=== PATIENT | female | born 1970 | race Asian ===

== ENCOUNTER 2021-05-23 22:11 | Inpatient (IN) | payer BC ==
[~2021-05-23] VITALS: Ht 167.6 cm; Wt 66.2 kg
[2021-05-23 23:07] LABS: HEMATOCRIT 36.2 % (31.2-41.9); MEAN CORPUSCULAR HEMOGLOBIN 30.4 uug (24.7-32.8); MEAN CORPUSCULAR VOLUME 89.5 fL (75.5-95.3); PLATELET COUNT (AUTO) 305 K/uL (179-408)
[2021-05-23 23:08] LABS: CARBON DIOXIDE 33 mmol/L (21-32); CHLORIDE 100 mmol/L (98-107); CREATININE 0.7 mg/dL (0.6-1.3); GLUCOSE 135 mg/dL (74-106); POTASSIUM 3.6 mmol/L (3.5-5.1); UREA NITROGEN, BLOOD 13 mg/dL (7-18)
[2021-05-23 23:20] LABS: ALANINE AMINOTRANSFERASE 27 U/L (14-59); ALKALINE PHOSPHATASE 130 U/L (50-136); ASPARTATE AMINOTRANSFERASE 12 U/L (15-37); BILIRUBIN,DIRECT < 0.1 mg/dL (0.0-0.2); BILIRUBIN,TOTAL 0.2 mg/dL (0.2-1.0); TOTAL PROTEIN, SERUM 7.5 g/dL (6.4-8.2)
[2021-05-24] VITALS (9 sets, daily range): BP systolic 98–124; BP diastolic 53–83
[2021-05-24] MEDS ORDERED: VANCOMYCIN 1G/D5W 200 ML PIGGYBACK IV ONE
[2021-05-24] MEDS ORDERED: PIPERACILLIN SODIUM/TAZOBACTAM 3.375 G in IV DEXTROSE 5% 50 ML IV ONE
[2021-05-24] MEDS ORDERED: AZITHROMYCIN IV 500 MG in IV DEXTROSE 5% 250 ML IV ONE
[2021-05-24] MEDS ORDERED: PIPERACILLIN/TAZOBACTAM/D5W 50 ML IV ONE (00:05)
[2021-05-24] MEDS ORDERED: AZITHROMYCIN 500MG/ D5W 250ML IVPB **ER PYXIS ONLY IV ONE (00:05)
[2021-05-24] MEDS ORDERED: SWABABLE VALVE TRANSFER SET EA MC ONE (00:35)
[2021-05-24] MEDS ORDERED: IOHEXOL 350 100 ML INFUS..BTL ONE (00:35)
--- NOTE | 2021-05-24 00:35 | NUR ---
ASSISTED PT TO USE BED GONGORA.
--- NOTE | 2021-05-24 00:49 | NUR ---
PT TAKEN DOWN TO CT.
--- NOTE | 2021-05-24 01:18 | NUR ---
PT RETURNED FROM CT.
[2021-05-24] MEDS ORDERED: IV NORMAL SALINE 250 ML IV ONE (01:26)
--- NOTE | 2021-05-24 02:29 | NUR ---
PT NOTED TO BE ASLEEP, RESTING COMFORTABLY IN BED. VITALS STABLE.
[2021-05-24 03:11] LABS: *BILIRUBIN,URIN NEGATIVE (NEGATIVE); *BLOOD, URINE 1+ (NEGATIVE); *CLARITY,URINE SLIGHTLY CLOUDY (CLEAR); *COLOR,URINE YELLOW (YELLOW); *KETONES,URINE NEGATIVE (NEGATIVE); *UROBILINOGEN,URINE 0.2 E.U./dl (NORMAL); LEUKOCYTE ESTERASE ,URINE 3+ (NEGATIVE); NITRITE, URINE NEGATIVE (NEGATIVE); PH,URINE 7.5 (5.0-8.0); UGLUCOSE NEGATIVE (NEGATIVE)
[2021-05-24 03:29] LABS: BACTERIA,URINE MANY /HPF (NONE SEEN); SQUAMOUS EPITHELIAL CELL,UR FEW /HPF (NONE SEEN); TRIPLE PHOSPHATE CRYSTAL,UR MODERATE /HPF (NONE SEEN); WBC,URINE 50-80 /HPF (0-3)
[2021-05-24 03:30] LABS: URINE AMORPHOUS PHOSPHATES MANY /HPF
[2021-05-24] MEDS ORDERED: LEVE500T9 PO (04:03)
[2021-05-24] MEDS ORDERED: IV NS 1000 ML 1,000 ML IV ONE ×2 (04:15)
--- NOTE | 2021-05-24 04:18 | NUR ---
PATIENT BP IS 74/41, HR 60, RR 16 WITH 02 SATS 100% ON RA. DR WADSWORTH ORDERED 1LITER OF NS.
[2021-05-24] MEDS ORDERED: MIDODRINE HCL 5 MG TABLET PO PRN (04:30)
[2021-05-24] MEDS ORDERED: ACETAMINOPHEN 325 MG TABLET PO PRN (04:30)
[2021-05-24] MEDS ORDERED: ONDANSETRON 4 MG/2 ML VIAL IV PRN (04:30)
[2021-05-24] MEDS: IV NS 1000 ML 1,000 ML IV ONE (04:30)
--- NOTE | 2021-05-24 04:45 | NUR ---
GAVE REPORT TO SANA ROSA CCU OVERFLOW.
--- NOTE | 2021-05-24 05:00 | NUR ---
PT DENIES ANY PAIN/DISCOMFORT. NO SOB OR LABORED BREATHING.
--- NOTE | 2021-05-24 05:10 | NUR ---
PT NOTED TO BE SOILED, PROVIDED PT WITH PROPER PERINEAL CARE, NOTED TO BE CLEAN AND DRY.
--- NOTE | 2021-05-24 05:30 | NUR ---
received patient and report from maliha . er nurse , patient is awake , no verbal , unable to follow command at this time , crackles throu out , suctioned with thick yellow secretions , SR ON 60" S , incontinent , bs 88 , ns running 100 ml , , peg flush , clogged , with scant drainage , portex size 6 , saturation is 82 on room air , татьяна 96.5 , bp 109/71 . iv 20 ga right ac, belongings is pajamas and socks
[2021-05-24] MEDS: IV NS 1000 ML 1,000 ML IV SCH ×3 (05:59→23:54)
--- NOTE | 2021-05-24 06:58 | NUR ---
patient is placed on t - piece 60 % fio2
--- NOTE | 2021-05-24 07:30 | NUR ---
patient is in bed, currently on T-piece, fio2 60%, 10 liter o2, responsive on calling her name, shakes her head for yes and no and goes back to sleep, saturating at 99%. noted with excessive secretions, RT bedside, performing suctioning, trach care.
[2021-05-24] MEDS: CEFTRIAXONE 1 G in IV DEXTROSE 5% 50 ML IV SCH (08:13)
[2021-05-24] MEDS ORDERED: levETIRAcetam 500 MG TABLET PO SCH (09:00)
[2021-05-24] MEDS ORDERED: levETIRAcetam IV 500 MG in IV DEXTROSE 5% 100 ML IV SCH (09:00)
[2021-05-24] MEDS: Z GUARD REMEDY PASTE 57 GM TUBE TOP SCH ×2 (09:02→21:18)
--- NOTE | 2021-05-24 09:15 | NUR ---
patient saturation on fio2 60% remains 99-100%, RT bedside, decreased fio2 to 28%, on 6 liters of o2, tolerated well, saturating at 100%, no distress noted, patient is responsive upon calling her name and shakes her head to answer " yes" or "no" able to lining layer her upper and lower extremities upon assessment, and squeeze this auto service writer hands upon assessment.
[2021-05-24 09:39] LABS: MEAN CORPUSCULAR HEMOGLOBIN 30.3 uug (24.7-32.8); MEAN CORPUSCULAR VOLUME 89.9 fL (75.5-95.3); PLATELET COUNT (AUTO) 260 K/uL (179-408)
[2021-05-24 09:53] LABS: CREATININE 0.6 mg/dL (0.6-1.3); POTASSIUM 4.3 mmol/L (3.5-5.1)
--- NOTE | 2021-05-24 11:01 | NUR ---
speech therapist performed evaluation, and recommended patient to be kept NPO for now.
--- NOTE | 2021-05-24 11:43 | NUR ---
spoke to [facility] ORTHOPEDIC MECHANIC, regarding able to unclogged the G-tube, g-tube placement checked with stethoscope, in place, per steph ORTHOPEDIC MECHANIC, refer to radiation therapy technician for tube feeding recommendation, radiation therapy technician made aware.
--- NOTE | 2021-05-24 11:48 | NUR ---
g-tube site is clean and dry, no discharge or redness noted at - g- tube site
[2021-05-24] MEDS ORDERED: JEVITY 1.2 1000 ML LIQUID GT PRN ×2 (13:00→14:43)
--- NOTE | 2021-05-24 13:15 | NUR ---
Patient started on g-tube feeding as recommended by inspector production plastic parts, start at 10ml per hour, titrate to 55ml/hr as tolerated x22 hours.
--- NOTE | 2021-05-24 14:47 | NUR ---
patient in bed, awake, follows commands, able to move her extremities, g-tube intact, running at 20ml per hour, flushed well, patent, patient voided x3, saturating at 99% at fio2 28%, 6liter of o2, noted with excessive secretions, suctioned as needed.
--- NOTE | 2021-05-24 16:31 | NUR ---
patient mother came to visit and said does not want g-tube to be used even it is patent, even flushed it well, and Varghese valve changed before used the g-tube, name tom stated that he does not want g-tube to be used. young want nurses to feed mai patient orally, despite explaining that patient failed the ST eval. Becky NURSE PRIVATE DUTY made aware.
--- NOTE | 2021-05-24 16:58 | NUR ---
after explaining in detail about consequences and risks and benefits by another nurse, patient daughter name Gregg, who was present next to patient Joaquin, agreed to feed patient via g-tube.
--- NOTE | 2021-05-24 17:04 | NUR ---
patient is awake, shakes her head to yes or no to questions, noted with excessive secretions, thick yellow sputum, suctioned as needed, saturating at 99% at fio2 28%, at 6 liter, no acute distress noted at this time, family bedside.
--- NOTE | 2021-05-24 19:00 | NUR ---
Received patient awake, able to respond questions by nodding head; trach attached to T piece @ 6L, FiO 28%, O2 sat 100%. Passy donn valve at bedside. GT patent with TF of Jevity 1.2 @ 30mls/hr goal rate: 55mls/hr, with no gastric residual. LAC 22G with ongoing NS @100mls/hr. Per BHANU Queen, patient had multiple PVCs @ 1700 and tried to contact cardio. Stat EKG done which revealed NSR, HR=71bpm. No signs of pain nor acute distress noted. Oral care and suctioning done every 2 hours and PRN. Turn and reposition every 2 hours.Will continue to monitor closely.
--- NOTE | 2021-05-24 19:18 | NUR ---
report given to financial aid coordinator, saturating at 99% at fio2 28%, o2 6 liter, however patient desaturates with mucous plug or with excessive secretions, gets back to normal saturation in few seconds. however patient remains asymptomatic, pink color, awake and responsive. no distress noted.
[2021-05-24] MEDS ORDERED: MIDODRINE HCL 5 MG TABLET GT PRN (20:30)
[2021-05-25] VITALS: BP 102/66
--- NOTE | 2021-05-25 02:00 | NUR ---
Resting comfortably. No significant change of condition noted. Will continue to monitor closely.
[2021-05-25 04:00] VITALS: BP 105/65
--- NOTE | 2021-05-25 06:36 | NUR ---
Left patient asleep, arousable to name; no signs of pain nor distress noted; trach portex 6, hooked to T piece @6L FiO28%, O2 sat of 100%. G tube patent TF Jevity 1.2 @50mls/hr off at [id number]. LAC with ongoing NS @ 100mls/hr. VSS. Endorsed to AM shift for continuity of care.
[2021-05-25 06:51] LABS: HEMATOCRIT 35.7 % (31.2-41.9); MEAN CORPUSCULAR HEMOGLOBIN 30.3 uug (24.7-32.8); MEAN CORPUSCULAR VOLUME 88.5 fL (75.5-95.3); PLATELET COUNT (AUTO) 278 K/uL (179-408)
--- NOTE | 2021-05-25 07:15 | NUR ---
Received pt. in bed resting ON T-Piece 6 liters., 28% FIO2 with saturation within desired limits. Hemodynamically stable on NSR. no pressor,. Diaper. G-T in place with feeding to be resumed. IV line patent will continue to monitor.
[2021-05-25 07:31] LABS: BILIRUBIN,TOTAL 0.2 mg/dL (0.2-1.0); CREATININE 0.6 mg/dL (0.6-1.3); PHOSPHOROUS 4.3 mg/dL (2.5-4.9); POTASSIUM 3.6 mmol/L (3.5-5.1); TOTAL PROTEIN, SERUM 7.3 g/dL (6.4-8.2)
[2021-05-25 08:00] VITALS: BP 112/75
[2021-05-25] MEDS: levETIRAcetam 500 MG/5 ML LIQUID UDC GT SCH ×2 (09:04→20:55)
[2021-05-25] MEDS: Z GUARD REMEDY PASTE 57 GM TUBE TOP SCH ×2 (09:05→20:54)
[2021-05-25] MEDS: CEFTRIAXONE 1 G in IV DEXTROSE 5% 50 ML IV SCH (09:05)
[2021-05-25] MEDS: JEVITY 1.2 1000 ML LIQUID GT PRN (09:07)
[2021-05-25] MEDS: IV NS 1000 ML 1,000 ML IV SCH ×3 (09:08→20:54)
--- NOTE | 2021-05-25 10:00 | NUR ---
Patient seen by attending physician. report given see order hx.
[2021-05-25 12:00] VITALS: BP 105/59
[2021-05-25 16:00] VITALS: BP 95/65
--- NOTE | 2021-05-25 18:30 | NUR ---
Left pt. in bed resting ON T-Piece 6 liters., 28% FIO2 with saturation within desired limits. Pt/ Afebrile for the shift. Hemodynamically stable on NSR. no pressor,. Diaper. G-T to feeding running at goal therapy pt. tolerating it well with no residuals. IV line patent will continue to monitor.
--- NOTE | 2021-05-25 19:30 | NUR ---
ROUNDS MADE PATIENT IN BED NON VERBAL,EYES OPEN SPONTANEOUSLY PATIENT ABLE TO MOVED HEAD FROM SIDE TO SIDE . ON T-PIECE 6 LITERS =28% LARGE THICK SECRETIONS,PINK TINGED AND WHITISH TO RAUSCH NEEDS TO BE SUCTION FREQUENTLY.INCONTINENT OF URINE CHANGED DIAPER PRN .IVF VIA THE LEFT AC WITH NORMAL SALINE IN PROGRESS . NO S/S OF PAIN AND NO RESPIRATORY DISTRESS NOTED. SATURATION 100% RR 19 TO 20.
[2021-05-25 20:00] VITALS: BP 104/77
--- NOTE | 2021-05-25 20:55 | NUR ---
DUE MEDICATION KEPPRA GIVEN VIA THE PEG ,ON TUBE FEEDING JEVITY AT 55ML/HR TOLERATING TUBE FEEDINGS . ASPIRATION PRECAUTION OBSERVED ,HOB UP .
--- NOTE | 2021-05-25 21:45 | NUR ---
incontinent of urine changed soiled linens and gown . turned and reposition patient .
--- NOTE | 2021-05-25 21:47 | NUR ---
TURNED AND REPOSITION PATIENT OFFLOADED BACK WITH PILLOWS ,BILATERAL HEELS ELEVATED WITH PILLOWS . BILATERAL UPPER ARM ELEVATED WITH PILLOWS . V/S WNL . CONTINUE TO MONITOR V/S AND FOLLOW PROTOCOLS FOR ROSA .
[2021-05-26] VITALS (8 sets, daily range): BP systolic 101–120; BP diastolic 54–84
--- NOTE | 2021-05-26 02:33 | NUR ---
incontinent of urine changed soiled linens and gown .applied z guard to bilateral groin and sacral area .
[2021-05-26] MEDS: IV NS 1000 ML 1,000 ML IV SCH (04:13)
--- NOTE | 2021-05-26 05:00 | NUR ---
DEPUTY OF COUNTER INTELLIGENCE AT B/S FOR AM LABS .
--- NOTE | 2021-05-26 06:00 | NUR ---
tolerated tube feedings .flushed peg with water .
[2021-05-26 06:07] LABS: MEAN CORPUSCULAR HEMOGLOBIN 30.3 uug (24.7-32.8); MEAN CORPUSCULAR VOLUME 88.5 fL (75.5-95.3); PLATELET COUNT (AUTO) 285 K/uL (179-408)
[2021-05-26 06:22] LABS: CREATININE 0.6 mg/dL (0.6-1.3); PHOSPHOROUS 4.5 mg/dL (2.5-4.9); POTASSIUM 3.6 mmol/L (3.5-5.1)
[2021-05-26] MEDS: CEFTRIAXONE 1 G in IV DEXTROSE 5% 50 ML IV SCH (09:42)
[2021-05-26] MEDS: levETIRAcetam 500 MG/5 ML LIQUID UDC GT SCH ×2 (09:42→20:43)
[2021-05-26] MEDS: Z GUARD REMEDY PASTE 57 GM TUBE TOP SCH ×2 (09:43→20:42)
[2021-05-26] MEDS: JEVITY 1.2 1000 ML LIQUID GT PRN (09:43)
[2021-05-26] MEDS ORDERED: SCOPOLAMINE PATCH 1 MG/72 HRS PATCH TD SCH (14:30)
--- NOTE | 2021-05-26 15:00 | NUR ---
patient can be downgraded to tele per yang castro while rounding on patient
[2021-05-26] MEDS ORDERED: SCOPOLAMINE HYDROBROMIDE 1.5 MG PATCH TD ONE (15:15)
[2021-05-26] MEDS: SCOPOLAMINE PATCH 1 MG/72 HRS PATCH TD SCH (15:38)
--- NOTE | 2021-05-26 19:30 | NUR ---
Report received. Patient admitted 05/24/21 with chest and abdominal pains. DX: UTI, Sepsis. Awake, passive and with flat affect. Doesn't respond to questions or follow any commands. Moving R arm, able to hold on to the rails. Reoriented to place and time. engine monitor: SR rate 60'-70's. BP stable. With trache Portex#6, O2 via T-piece at 6L. O2 saturations above 94%. GT patent; with continuous feedings at 55 ml/H. No residuals. Assessment completed. Addendum: 05/27/21 at 0147 by ALEKSANDAR WALSH RN Amended: Links added. Addendum: 05/27/21 at 0149 by ALEKSANDAR WALSH RN Amended: Links added.
--- NOTE | 2021-05-26 20:00 | NUR ---
Turned and repositioned. Skin care provided. Suctioned via trache for large amounts of white, bloody tinged secretions. With good cough reflex. Addendum: 05/27/21 at 0149 by ALEKSANDAR WALSH RN Amended: Links added.
[2021-05-27] VITALS (13 sets, daily range): BP systolic 86–107; BP diastolic 54–71
--- NOTE | 2021-05-27 | NUR ---
Requires frequent suctioning. Incontinent of urine. Diaper changed. Addendum: 05/27/21 at 0158 by ALEKSANDAR WALSH RN Amended: Links added.
--- NOTE | 2021-05-27 04:00 | NUR ---
Saline lock leaking; new saline lock inserted to RFA. Diaper changed; patient incontinent of yellow urine. Am care rendered. Skin care provided. GT care done. Tolerating feedings well at 55 ml/H. Addendum: 05/27/21 at 0517 by ALEKSANDAR WALSH RN Amended: Links added.
[2021-05-27 05:47] LABS: HEMATOCRIT 34.5 % (31.2-41.9); MEAN CORPUSCULAR HEMOGLOBIN 29.9 uug (24.7-32.8); MEAN CORPUSCULAR VOLUME 89.2 fL (75.5-95.3); PLATELET COUNT (AUTO) 301 K/uL (179-408)
[2021-05-27 05:52] LABS: CREATININE 0.7 mg/dL (0.6-1.3); PHOSPHOROUS 5.2 mg/dL (2.5-4.9); POTASSIUM 3.6 mmol/L (3.5-5.1)
--- NOTE | 2021-05-27 06:37 | NUR ---
No neuro changes. Tolerating GT feedings well, off [id number]. Still requiring frequent suctioning. VS stable.
--- NOTE | 2021-05-27 07:20 | NUR ---
Received report from restaurant shift supervisor nurse. Patient is awake, passive, with flat affect. Responds to commands. Moving R arm and feet. Reoriented to place and time. SR rate 60'-70's on the monitor. Hemodynamically stable. trache Portex#6, O2 via T-piece at 6L. O2 saturation 99%. GT patent; with continuous feedings at 55 ml/H. No residuals. Assessment completed. Patient is afebrile, on air mattress with diaper on. SCD's in place.
[2021-05-27] MEDS: levETIRAcetam 500 MG/5 ML LIQUID UDC GT SCH ×2 (08:12→20:28)
[2021-05-27] MEDS: CEFTRIAXONE 1 G in IV DEXTROSE 5% 50 ML IV SCH (08:12)
[2021-05-27] MEDS: Z GUARD REMEDY PASTE 57 GM TUBE TOP SCH ×2 (08:12→20:28)
--- NOTE | 2021-05-27 10:40 | NUR ---
Notified Dr. Hayes that no DVT prophylaxis or gi prophylaxis in place. Received orders for lovenox 40mg sq daily.
--- NOTE | 2021-05-27 19:10 | NUR ---
Notified Dr. Hayes of CT Abdomen results and received orders for Milk of Magnesium.
--- NOTE | 2021-05-27 19:30 | NUR ---
Report received. Patient awake, nods head appropriately to answer questions but appears passive and with flat affect. Coughing productively; with large amounts of thick white secretions. Turned and repositioned. HOB elevated above 30 degrees. Tolerating GT feedings well; no residuals.
[2021-05-27] MEDS: ENOXAPARIN SODIUM 40 MG/0.4 ML DISP.SYRIN SQ SCH (20:29)
[2021-05-27] MEDS: PRIMIDONE 50 MG TABLET PO SCH (20:29)
[2021-05-27] MEDS: MAGNESIUM HYDROXIDE 30 ML LIQUID UDC PO PRN (20:29)
--- NOTE | 2021-05-27 22:13 | NUR ---
BP 86/58, patient sleeping. Midodrine PRN given via GT.
--- NOTE | 2021-05-27 22:30 | NUR ---
Diaper changed. Turned sides to sides. Skin care provided.
--- NOTE | 2021-05-27 23:35 | NUR ---
Transferred to Tele room #314 per bed. Belongings with patient upon transfer.
--- NOTE | 2021-05-27 23:45 | NUR ---
Transfer from CCU; agree with assessment; will continue to observe.
[2021-05-28 00:03] VITALS: BP 94/60
[2021-05-28 04:00] VITALS: BP 80/48
[2021-05-28 05:19] VITALS: BP 101/48
--- NOTE | 2021-05-28 07:15 | NUR ---
Received patient in bed, asleep. Portex 6 on 6L O2 via Tpiece. RFA #20 patent and intact. With PEG tube, no feeding running at this time. Will continue to monitor.
[2021-05-28] MEDS: JEVITY 1.2 1000 ML LIQUID GT PRN (08:05)
[2021-05-28] MEDS: Z GUARD REMEDY PASTE 57 GM TUBE TOP SCH ×2 (08:06→20:09)
[2021-05-28] MEDS: levETIRAcetam 500 MG/5 ML LIQUID UDC GT SCH ×2 (08:06→20:09)
[2021-05-28] MEDS: PRIMIDONE 50 MG TABLET PO SCH ×2 (08:06→20:09)
[2021-05-28] MEDS: CEFTRIAXONE 1 G in IV DEXTROSE 5% 50 ML IV SCH (09:09)
[2021-05-28 11:59] VITALS: BP 104/71
[2021-05-28 16:00] VITALS: BP 101/54
--- NOTE | 2021-05-28 18:40 | NUR ---
Patient resting in bed. With Portex 6, 6L O2 via Tpiece, saturating 98-100%. No signs of acute distress. Patient tolerated medications and tube feeding well.
--- NOTE | 2021-05-28 18:41 | NUR ---
Patient turned and repositioned q2. Bed in low position for safety. Sinus Mt to Sinus Rhythm on low voltage technician. IV access patent and intact. Will endorse to incoming shift for continuity of care.
[2021-05-28 20:00] VITALS: BP 99/64
[2021-05-28] MEDS: ENOXAPARIN SODIUM 40 MG/0.4 ML DISP.SYRIN SQ SCH (20:08)
[2021-05-29] VITALS: BP 98/60
[2021-05-29 04:00] VITALS: BP 91/61
[2021-05-29 05:49] LABS: CREATININE 0.6 mg/dL (0.6-1.3); MAGNESIUM 2.1 mg/dL (1.8-2.4); PHOSPHOROUS 4.8 mg/dL (2.5-4.9); POTASSIUM 3.8 mmol/L (3.5-5.1)
[2021-05-29 05:50] LABS: HEMATOCRIT 35.6 % (31.2-41.9); MEAN CORPUSCULAR HEMOGLOBIN 30.5 uug (24.7-32.8); MEAN CORPUSCULAR VOLUME 89.4 fL (75.5-95.3); PLATELET COUNT (AUTO) 297 K/uL (179-408)
--- NOTE | 2021-05-29 06:25 | NUR ---
Pt rested well in between care; suctioned oral and tracheal secretions; oral care done; trache care done; seizure prec observed; safety maintained; GT feed tolerated with aspiration precautions; continue to monitor; continue plan of care.
[2021-05-29] MEDS: JEVITY 1.2 1000 ML LIQUID GT PRN (08:12)
[2021-05-29] MEDS: CEFTRIAXONE 1 G in IV DEXTROSE 5% 50 ML IV SCH (09:25)
[2021-05-29] MEDS: levETIRAcetam 500 MG/5 ML LIQUID UDC GT SCH ×2 (09:25→20:21)
[2021-05-29] MEDS: Z GUARD REMEDY PASTE 57 GM TUBE TOP SCH ×2 (09:26→20:22)
[2021-05-29] MEDS: PRIMIDONE 50 MG TABLET PO SCH ×2 (09:26→20:21)
[2021-05-29 10:07] LABS: ABG BASE EXCESS 4.3 mmol/L; ABG HCO3 29.4 mmol/L; ABG PCO2 45.7 mmHg (35.0-45.0); ABG PH 7.426 (7.350-7.450); ABG PO2 85.6 mmHg (75.0-100.0); ABG SITE RIGHT RADIAL; ABG TOTAL HEMOGLOBIN 12.2 G/dL (12.0-16.0); COHb 0.8 % (0.5-1.5); MetHb 0.3 % (0.0-1.5); O2Hb 95.2 % (94.0-97.0); VENT MODE T-Piece - C/A 28%
[2021-05-29 11:33] VITALS: BP 96/60
[2021-05-29] MEDS ORDERED: LEVO750T46 PO (11:45)
[2021-05-29] MEDS ORDERED: LACT-209 GT (11:45)
[2021-05-29] MEDS: ACETAMINOPHEN 650 MG/20.3 ML LIQUID UDC GT PRN (15:22)
[2021-05-29] MEDS: SCOPOLAMINE PATCH 1 MG/72 HRS PATCH TD SCH (15:33)
[2021-05-29 16:00] VITALS: BP 95/56
--- NOTE | 2021-05-29 18:24 | NUR ---
per request the [facility] 9 in home supportive service ) papers to be signed by professional to increase the hours of care at home, per Rashad Cole its about the same hours of care patient was getting before at home.
[2021-05-29 20:00] VITALS: BP 99/64
[2021-05-29] MEDS: ENOXAPARIN SODIUM 40 MG/0.4 ML DISP.SYRIN SQ SCH (20:20)
[2021-05-30] VITALS: BP 107/62
[2021-05-30 04:00] VITALS: BP 101/63
[2021-05-30 06:33] LABS: HEMATOCRIT 33.6 % (31.2-41.9); MEAN CORPUSCULAR HEMOGLOBIN 30.3 uug (24.7-32.8); MEAN CORPUSCULAR VOLUME 88.9 fL (75.5-95.3); PLATELET COUNT (AUTO) 298 K/uL (179-408)
[2021-05-30 07:44] LABS: CREATININE 0.5 mg/dL (0.6-1.3); MAGNESIUM 2.1 mg/dL (1.8-2.4); PHOSPHOROUS 3.8 mg/dL (2.5-4.9); POTASSIUM 3.7 mmol/L (3.5-5.1)
--- NOTE | 2021-05-30 08:00 | NUR ---
awake but no verbal response, on trache to P mist at 6l, on continuous pulse oximetry-98 %, tele -SR 60's, suctioned of whitish thin secretions, head of bed elevated, G tube in place- checked residual-none obtained, feeding Jevity 1.2 at 55ml/hr- resumed, aspiration precaution observed, repositioned for comfort to left side with pillows for support, heels off loaded with pillows, safety measures maintained
[2021-05-30] MEDS: CEFTRIAXONE 1 G in IV DEXTROSE 5% 50 ML IV SCH (08:04)
[2021-05-30] MEDS: levETIRAcetam 500 MG/5 ML LIQUID UDC GT SCH ×2 (08:04→20:14)
[2021-05-30] MEDS: PRIMIDONE 50 MG TABLET PO SCH ×2 (08:04→20:14)
[2021-05-30] MEDS: Z GUARD REMEDY PASTE 57 GM TUBE TOP SCH ×2 (09:56→20:15)
--- NOTE | 2021-05-30 10:00 | NUR ---
parents at bedside, no distress noted
[2021-05-30 10:14] VITALS: BP 104/69
--- NOTE | 2021-05-30 11:00 | NUR ---
here, and updated on pt's condition, SW here and spoke to
[2021-05-30 15:55] VITALS: BP 99/57
[2021-05-30] MEDS: MAGNESIUM HYDROXIDE 30 ML LIQUID UDC PO PRN (16:44)
[2021-05-30] MEDS: ACETAMINOPHEN 650 MG/20.3 ML LIQUID UDC GT PRN (16:44)
[2021-05-30] MEDS: JEVITY 1.2 1000 ML LIQUID GT PRN (17:55)
--- NOTE | 2021-05-30 18:21 | NUR ---
Patient currently resting in bed, AxO2-3, Trached at 6L saturating at 97-98%. Patient showed no signs of distress during shift. Comfort measures provided. Call light within reach. Will endorse to oncoming shift.
--- NOTE | 2021-05-30 19:30 | NUR ---
Patient resting in bed in semi fowlers position. AAO to self, Able to answer closed ended questions by nodding. Portex size [address], t-piece at 6L/min. 02 sats monitored continuous, 02 sats 95-96 at this time. Noted to be attempting to remove o2 monitoring device multiple times and restless with hands and feet. GT in place, infusing Jevity 1.2 at 55ml/hr, patent and intact. Midline to right upper arm #18, intact and patent. Safety measures initiated, call light within reach.
[2021-05-30 20:00] VITALS: BP 99/60
[2021-05-30] MEDS: ENOXAPARIN SODIUM 40 MG/0.4 ML DISP.SYRIN SQ SCH (20:14)
[2021-05-31 04:00] VITALS: BP 113/74
--- NOTE | 2021-05-31 06:44 | NUR ---
Slept intermittently this shift. Suctioning provided as needed for secretions via Trach, portex 6, on 6L/min via T-piece. Continues on sat monitoring, sats 98-100%. GT feeding continued without complication, GT is patent and intact. No residual. Right arm midline intact and patent. Call light within reach.
--- NOTE | 2021-05-31 08:00 | NUR ---
woke up on assessment, with trache to Pmist 6L, suctioned of thin whitish phlegm, head of bed elevated, GT patent and in place- checked residual- none obtained, Jevity 1.2 resumed at 55ml/hr, aspiration precaution observed, repositioned and kept comfortable, safety measures maintained, no distress noted
[2021-05-31] MEDS: levETIRAcetam 500 MG/5 ML LIQUID UDC GT SCH ×2 (08:13→20:46)
[2021-05-31] MEDS: PRIMIDONE 50 MG TABLET PO SCH ×2 (08:14→20:47)
[2021-05-31] MEDS: Z GUARD REMEDY PASTE 57 GM TUBE TOP SCH ×2 (08:15→21:58)
--- NOTE | 2021-05-31 08:30 | NUR ---
seen by Dr Armenta
--- NOTE | 2021-05-31 09:00 | NUR ---
seen by Dr Ashley
--- NOTE | 2021-05-31 11:00 | NUR ---
family asking for pmv. A Douglas informed, speech therapist for PMV aleida
[2021-05-31 11:54] VITALS: BP 105/61
[2021-05-31 16:17] VITALS: BP 109/76
[2021-05-31] MEDS: JEVITY 1.2 1000 ML LIQUID GT PRN (18:13)
--- NOTE | 2021-05-31 18:30 | NUR ---
no distress noted, suctioned as needed for whitish secretions, repositioned q 2h for comfort, no residual from feeding, no n/v, CM still working on d/c planning, all needs attended and met,
[2021-05-31 20:38] VITALS: BP 105/65
[2021-05-31] MEDS: ENOXAPARIN SODIUM 40 MG/0.4 ML DISP.SYRIN SQ SCH (20:55)
[2021-06-01 04:31] VITALS: BP 98/66
--- NOTE | 2021-06-01 06:54 | NUR ---
Patient Slept well. on 6L/min via T-piece. suctioned PRN via Trach. Portex#6.Continues on 02 sat monitoring.HOB elevated.Aspiration precaution observed at all times.Gt in place patent and intact. No residual. Right arm midline intact and patent. Call light within reach.
[2021-06-01 08:08] VITALS: BP 85/60
--- NOTE | 2021-06-01 08:20 | NUR ---
Pt is awake, no distress noted. Pt was suctioned, O2 sat 96-97. No distress. G-tube had no residual, placement was checked. Med given as ordered. Pt had speech therapy, able to use speech valve. Per therapist, pt is able to have small amounts of pureed food such as apple sauce for oral satisfaction. Oral care provided.
[2021-06-01] MEDS: Z GUARD REMEDY PASTE 57 GM TUBE TOP SCH ×2 (10:25→20:27)
[2021-06-01] MEDS: levETIRAcetam 500 MG/5 ML LIQUID UDC GT SCH ×2 (10:25→20:05)
[2021-06-01] MEDS: PRIMIDONE 50 MG TABLET GT SCH ×2 (10:25→20:05)
[2021-06-01 12:36] VITALS: BP 104/70
[2021-06-01 16:20] VITALS: BP 91/60
[2021-06-01] MEDS: SCOPOLAMINE PATCH 1 MG/72 HRS PATCH TD SCH (17:45)
[2021-06-01] MEDS: JEVITY 1.2 1000 ML LIQUID GT PRN (18:14)
--- NOTE | 2021-06-01 19:15 | NUR ---
Received pt awake, resting in bed, AO x 2/3, in semi turner's position, continuous pulse ox on, on 6L/min via T-piece saturating at 99%, MARIA INES midline intact, G tube intact and running Jevity 1.2, tolerating feeding. no signs of acute distress. denies pain and discomfort by nodding head. Call light within reach, safety measures initiated and belongings placed by bedside.
[2021-06-01] MEDS: ENOXAPARIN SODIUM 40 MG/0.4 ML DISP.SYRIN SQ SCH (20:18)
[2021-06-01 20:20] VITALS: BP 98/63
[2021-06-02 04:24] VITALS: BP 96/58
--- NOTE | 2021-06-02 06:33 | NUR ---
Slept intermittently throughout the night, AO x 1, on 6L oxygen via trach saturating at 98%. Jevity 1.2 loretta running on G tube, tolerating well. Skin intact, no redness. On air mattress, repositioning Q2H. All needs have been met. No signs of acute distress. Call lights within reach, safety measures maintained. Will endorse to am shift.
[2021-06-02] MEDS: levETIRAcetam 500 MG/5 ML LIQUID UDC GT SCH ×2 (08:13→20:23)
[2021-06-02] MEDS: PRIMIDONE 50 MG TABLET GT SCH ×2 (08:14→20:23)
[2021-06-02] MEDS: Z GUARD REMEDY PASTE 57 GM TUBE TOP SCH ×2 (08:15→20:24)
--- NOTE | 2021-06-02 09:00 | NUR ---
#[id number] acid condenser phone in Spanish. Mother at bedside. Confirmed that patient has all the equipment for g tube mother states that they haven't receive the food. Mother said that they have a nurse from 10am - 6 pm to help and Juan Miguel "son" and mother takes care of patient when caregiver is gone. Explained that pt needs turning q 2 hrs to prevent bed sores and that insurance cant provide air Mattress per kristian martinez.
--- NOTE | 2021-06-02 10:00 | NUR ---
Juan Miguel change mind for discharge planning. Juan Miguel want to have pt discharge to a SNF instead of home. Notified casemanagement, kristian, of change of mind.
--- NOTE | 2021-06-02 15:50 | NUR ---
b/p low 62/34 hr 62. Pt diaphoretic. bs checked 95 WNL Pt skin tenting and dehydrated. Attempted IV start unsuccessful. Gave Free water of 300ml total through g tube b/p went up to 90/57 hr of 67. Midline nurse coming in to start iv access. will continue to monitor patient.
[2021-06-02 15:59] VITALS: BP 54/27
--- NOTE | 2021-06-02 16:43 | NUR ---
B.p 102/65 hr 70. Pt is in no acute distress. Midline nurse eta @ 600.
--- NOTE | 2021-06-02 18:24 | NUR ---
Midline MICHELLE started midline on right upper arm. Midline patent.
[2021-06-02] MEDS: JEVITY 1.2 1000 ML LIQUID GT PRN (19:05)
[2021-06-02 20:13] VITALS: BP 96/60
[2021-06-02] MEDS: ENOXAPARIN SODIUM 40 MG/0.4 ML DISP.SYRIN SQ SCH (20:23)
[2021-06-03] VITALS: BP 100/55
[2021-06-03 03:57] VITALS: BP 102/66
--- NOTE | 2021-06-03 06:33 | NUR ---
Pt rested well in between care; no acute distress; repositioned for comfort; trache and oral care done; suctioned secretions; safetymaintained.
[2021-06-03 07:18] LABS: CARBON DIOXIDE 33 mmol/L (21-32); CHLORIDE 100 mmol/L (98-107); CREATININE 0.4 mg/dL (0.6-1.3); GLUCOSE 113 mg/dL (74-106); PHOSPHOROUS 4.5 mg/dL (2.5-4.9); POTASSIUM 3.9 mmol/L (3.5-5.1); UREA NITROGEN, BLOOD 14 mg/dL (7-18)
[2021-06-03 07:20] LABS: HEMATOCRIT 38.1 % (31.2-41.9); MEAN CORPUSCULAR HEMOGLOBIN 30.2 uug (24.7-32.8); MEAN CORPUSCULAR VOLUME 88.6 fL (75.5-95.3); PLATELET COUNT (AUTO) 308 K/uL (179-408)
[2021-06-03 07:39] LABS: ABG BASE EXCESS 5.9 mmol/L; ABG HCO3 30.9 mmol/L; ABG PCO2 46.7 mmHg (35.0-45.0); ABG PH 7.439 (7.350-7.450); ABG PO2 95.9 mmHg (75.0-100.0); ABG SITE RIGHT RADIAL; COHb 0.7 % (0.5-1.5); MetHb 0.3 % (0.0-1.5); O2Hb 96.4 % (94.0-97.0)
--- NOTE | 2021-06-03 08:00 | NUR ---
Suctioned pt noted min frothy mucus. PT repositioned for comfort. Midline on right brachial intact. o2 sat 97%. Pt is in no acute distress. Call light is within reach.
[2021-06-03] MEDS: PRIMIDONE 50 MG TABLET GT SCH (08:09)
[2021-06-03] MEDS: levETIRAcetam 500 MG/5 ML LIQUID UDC GT SCH (08:09)
[2021-06-03] MEDS: Z GUARD REMEDY PASTE 57 GM TUBE TOP SCH (08:13)
[2021-06-03 11:59] VITALS: BP 102/68
--- NOTE | 2021-06-03 15:00 | NUR ---
Used tank house operator helper phone to communicate with pt's mother tank house operator helper #[phone] (aryan oakley tank house operator helper) answered mothers concern about SNF placement and aspiration precautions with pts oral gratification.
[2021-06-03 16:00] VITALS: BP 117/80
--- NOTE | 2021-06-03 17:45 | NUR ---
[facility] given to noe mcnally rn. PT is in no acute distress. Call light is within reach. Mother of pt refused to have updated pictures taken. "her skin is fine dont take pictures"
== END 2021-06-03 17:35 | DRG 463 ==
LOC: ER 22:13 → CCU 05-24 04:33 → TELE3 05-27 23:38 → MEDSURG3 05-30 19:05
PROVIDERS: ADMIT Nurse Practitioner Acute Care; ATTEND Hospitalist
PROC: 05H933Z Insertion of Infusion Device into Right Brachial Vein, Percutaneous Approach (ICD-10-PCS; principal; 2021-05-29)
PROC: 05H933Z Insertion of Infusion Device into Right Brachial Vein, Percutaneous Approach (ICD-10-PCS; 2021-06-02)
DX: N39.0 Urinary tract infection, site not specified (principal); G93.40 Encephalopathy, unspecified; J15.0 Pneumonia due to Klebsiella pneumoniae; J91.8 Pleural effusion in other conditions classified elsewhere; J96.11 Chronic respiratory failure with hypoxia; D68.59 Other primary thrombophilia; R53.2 Functional quadriplegia; G93.89 Other specified disorders of brain; Z93.0 Tracheostomy status; B96.20 Unspecified Escherichia coli [E. coli] as the cause of diseases classified elsewhere; G40.909 Epilepsy, unspecified, not intractable, without status epilepticus; I10 Essential (primary) hypertension; K56.41 Fecal impaction; Z20.822 Contact with and (suspected) exposure to COVID-19; Z93.1 Gastrostomy status; Z87.01 Personal history of pneumonia (recurrent); Z98.2 Presence of cerebrospinal fluid drainage device; R13.10 Dysphagia, unspecified
CPT/HCPCS: 36415; 36600; 70030-TC; 70450; 71045; 71275; 83605; 83735; 84100; 85025; 87040; 87070; 87077; 87086; 93005; 93307; 94760; 97161; A4217; A4663; A6209; G0378; J0456; J0696; J1650; J1953; J2543; J3370; J7030; J7040; J7050; J7060; Q9967